=== PATIENT | female | born 1970 | race Caucasian/White ===

== ENCOUNTER 2017-06-02 07:20 | Emergency (ER) | payer MEDICARE, MEDICAID ==
[~2017-06-02] VITALS: Ht 162.6 cm; Wt 108.9 kg
[2017-06-02 07:44] VITALS: BP 146/76
[2017-06-02] MEDS ORDERED: SODIUM CHLORIDE 0.9% 1,000 ML IV ONE (09:18)
[2017-06-02] MEDS ORDERED: SPIRONOLACTONE 25 MG TAB PO ONE (09:30)
[2017-06-02] MEDS ORDERED: FUROSEMIDE 20 MG/2 ML VIAL IV ONE (09:30)
== END 2017-06-02 09:15 | disposition left against medical advice (07) ==
LOC: EDBD 07:20 → ER 07:20
DX: C34.90 Malignant neoplasm of unspecified part of unspecified bronchus or lung (principal); R60.1 Generalized edema; I10 Essential (primary) hypertension; Z85.3 Personal history of malignant neoplasm of breast
CPT/HCPCS: 94761